=== PATIENT | female | born 1935 | race Caucasian/White ===

== ENCOUNTER 2017-11-05 13:26 | Emergency (ER) | payer OTHER ==
[2017-11-05 15:26] LABS: Urine Blood NEGATIVE (NEG); Urine Glucose NEGATIVE (NEG); Urine Protein NEGATIVE (NEG); Urine Specific Gravity 1.015 (1.005-1.030); Urine pH 6.5 (5.0-7.0)
--- NOTE | 2017-11-05 15:56 | RAD REPORT ---
EXAM DESCRIPTION: CT - Head Brain Wo Cont - 11/05/2017 3:44 pm CLINICAL HISTORY: Headache COMPARISON: None. TECHNIQUE: Computed axial tomography of the head was obtained. IV contrast was not requested. All CT scans are performed using dose optimization technique as appropriate and may include automated exposure control or mA/KV adjustment according to patient size. FINDINGS: An intracranial bleed is not seen . The ventricles are normal in caliber. No extra-axial fluid collection is noted. Cerebral atrophy is noted. Fluid within the sinuses/ mastoids is not seen. IMPRESSION: No acute intracranial abnormality is seen. If patient's symptoms persist MRI of the bra in would be recommended.
[2017-11-05 16:16] LABS: Urine Bacteria 20-50 /HPF (<20); Urine Culture Reflex Order NOT NEEDED; Urine RBC <5 /HPF (NONE SEEN)
--- NOTE | 2017-11-05 16:20 | RAD REPORT ---
EXAM DESCRIPTION: Gaby Rebolledo (2 Views)11/05/2017 3:54 pm CLINICAL HISTORY: Cough COMPARISON: 2012 FINDINGS: The lungs appear clear of acute infiltrate. The heart is mildly to moderate enlarged IMPRESSION: No acute abnormalities displayed
--- NOTE | 2017-11-05 16:20 | EDPHYS ---
Physician Documentation [facility] Name: Carrie Summers Age: 82 yrs Sex: Female : 1935 Arrival Date: 11/05/2017 Time: 13:28 Bed 26 Private MD: ED Physician Terrell Oneil HPI: 11/05 16:24 This 82 yrs old Female presents to ER via Ambulatory with complaints of Back snw Pain. 16:24 The patient presents with pain that is chronic, with no known mechanism of injury, and snw decreased range of motion. The symptoms are located in the low back. Onset: The symptoms/episode began/occurred gradually, today. The pain does not radiate. Associated signs and symptoms: Pertinent positives: headache. The problem was sustained Son went to the home and pt was tearful with headache and lower back pain. Severity of symptoms: At their worst the symptoms were moderate, severe, in the emergency department the symptoms have resolved. It is unknown whether or not the patient has had similar symptoms in the past. It is unknown whether or not the patient has recently seen a physician. pt has not been consistently taking regular home meds for about a week. Historical: - Allergies: 13:35 No Known Allergies; sv - Home Meds: 13:35 Eliquis oral oral [Active]; sv 13:40 amlodipine 10 mg oral tab once daily [Active]; hydrochlorothiazide 25 mg oral tab once sv daily [Active]; lisinopril 40 mg oral tab once daily [Active]; Namzaric 28-10 mg oral CSpX [Active]; Namenda oral oral [Active]; Lipitor 40 mg Oral tab 1 tab once daily [Active]; - PMHx: 13:35 PE; Hypertension; High Cholesterol; Depression; Alzheimers; sv - PSHx: 13:35 Hysterectomy; sv - Immunization history:: Adult Immunizations up to date. - Social history:: Smoking status: Patient/guardian denies using tobacco. - Ebola Screening: : No symptoms or risks identified at this time. ROS: 16:22 Constitutional: Negative for fever, chills, and weight loss, Eyes: Negative for injury, snw pain, redness, and discharge, ENT: Negative for injury, pain, and discharge, Neck: Negative for injury, pain, and swelling, Cardiovascular: Negative for chest pain, palpitations, and edema, Respiratory: Negative for shortness of breath, cough, wheezing, and pleuritic chest pain, Abdomen/GI: Negative for abdominal pain, nausea, vomiting, diarrhea, and constipation. 16:22 : Negative for injury, bleeding, discharge, and swelling, MS/Extremity: Negative for injury and deformity, Skin: Negative for injury, rash, and discoloration. 16:22 Back: Positive for pain at rest, pain with movement. 16:22 Neuro: Positive for headache. Exam: 16:22 Constitutional: This is a well developed, well nourished patient who is awake, alert, snw and in no acute distress. Head/Face: Normocephalic, atraumatic. Eyes: Pupils equal round and reactive to light, extra-ocular motions intact. Lids and lashes normal. Conjunctiva and sclera are non-icteric and not injected. Cornea within normal limits. Periorbital areas with no swelling, redness, or edema. ENT: Nares patent. No nasal discharge, no septal abnormalities noted. Tympanic membranes are normal and external auditory canals are clear. Oropharynx with no redness, swelling, or masses, exudates, or evidence of obstruction, uvula midline. Mucous membranes moist. Neck: Trachea midline, no thyromegaly or masses palpated, and no cervical lymphadenopathy. Supple, full range of motion without nuchal rigidity, or vertebral point tenderness. No Meningismus. Chest/axilla: Normal chest wall appearance and motion. Nontender with no deformity. No lesions are appreciated. Cardiovascular: Regular rate and rhythm with a normal S1 and S2. No gallops, murmurs, or rubs. Normal PMI, no JVD. No pulse deficits. Respiratory: Lungs have equal breath sounds bilaterally, clear to auscultation and percussion. No rales, rhonchi or wheezes noted. No increased work of breathing, no retractions or nasal flaring. Abdomen/GI: Soft, non-tender, with normal bowel sounds. No distension or tympany. No guarding or rebound. No evidence of tenderness throughout. Back: No spinal tenderness. No costovertebral tenderness. Full range of motion. Skin: Warm, dry with normal turgor. Normal color with no rashes, no lesions, and no evidence of cellulitis. MS/ Extremity: Pulses equal, no cyanosis. Neurovascular intact. Full, normal range of motion. Neuro: Awake and alert, GCS 15, oriented to person, place, time, and situation. Cranial nerves II-XII grossly intact. Motor strength 5/5 in all extremities. Sensory grossly intact. Cerebellar exam normal. Normal gait. Vital Signs: 13:36 BP 128 / 72; Pulse 67; Resp 18; Temp 98.5; Pulse Ox 100% ; Height 5 ft. 6 in. (167.64 sv cm); 15:53 BP 131 / 70; Pulse 64; Resp 18; Pulse Ox 100% on R/A; eb1 17:50 BP 130 / 63; Pulse 67; Resp 16; Pulse Ox 97% on R/A; eb1 MDM: 14:51 Patient medically screened. snw 16:24 Data reviewed: vital signs, nurses notes. Data interpreted: Pulse oximetry: on room air snw is 100 %. Interpretation: normal. Counseling: I had a detailed discussion with the patient and/or guardian regarding: the historical points, exam findings, and any diagnostic results supporting the discharge/admit diagnosis, the presence of at least one elevated blood pressure reading (>120/80) during this emergency department visit, lab results, radiology results, the need for outpatient follow up, to return to the emergency department if symptoms worsen or persist or if there are any questions or concerns that arise at home. Special discussion: Based on the history and exam findings, there is no indication for further emergent testing or inpatient evaluation. I discussed with the patient/guardian the need to see the primary care provider for further evaluation of the symptoms. 11/05 14:49 Order name: Urine Culture sn 11/05 14:49 Order name: Urine Microscopic Only; Complete Time: 16:17 snw 11/05 15:06 Order name: Urine Dipstick--Ancillary (enter results); Complete Time: 15:26 em1 11/05 15:28 Order name: Chest Pa And Lat (2 Views) XRAY; Complete Time: 16:22 snw 11/05 15:28 Order name: CT Head Brain wo Cont; Complete Time: 16:00 snw 11/05 14:49 Order name: Urine Dipstick-Ancillary (obtain specimen); Complete Time: 15:01 snw Administered Medications: 16:55 Not Given (unavailable at facility, other intervention used. ): cefPODOXime 100 mg PO ss once 16:57 CANCELLED (Other Intervention Used): Rocephin 1 grams IV at calculated rate once; Given ss slow IV push per pharmacy instructions 17:10 Drug: Rocephin (cefTRIAXone) 1 grams Route: IM; Site: left gluteus; eb1 17:50 Follow up: Response: No adverse reaction eb1 Disposition: 11/05/17 16:19 Discharged to Home. Impression: Urinary tract infection, site not specified, Headache - resolved, Low back pain. - Condition is Stable. - Discharge Instructions: Back Pain, Adult, Musculoskeletal Pain, Urinary Tract Infection. - Prescriptions for cefpodoxime 200 mg Oral Tablet - take 1 tablet by ORAL route every 12 hours with food; 20 tablet. - Medication Reconciliation Form, Thank You Letter, Antibiotic Education, Prescription Opioid Use form. - Follow up: Private Physician; When: 2 - 3 days; Reason: Recheck today's complaints, Continuance of care, Re-evaluation by your physician. Follow up: Emergency Department; When: As needed; Reason: Worsening of condition. Addendum: 11/09/2017 12:05 Co-signature as Attending Physician, Terrell Oneil MD. g s Signatures: Dispatcher [employer] Soumya Paulson RN RN sv Therrien, Shelly, CURB BUILDER-C CURB BUILDER-Prerna Farrell RN RN ss Starr, Gregory, MD MD gs Basinger, Emily RN RN eb1 Corrections: (The following items were deleted from the chart) 11/05 13:40 13:35 Home Meds: amlodipine oral; sv sv 13:40 13:36 Home Meds: Hydrochlorothiazide Oral; sv sv 13:40 13:36 Home Meds: Alzheimer's med; sv sv 13:40 13:36 Home Meds: Lisinopril Oral; sv sv 16:19 16:19 11/05/2017 16:19 Discharged to Home. Impression: Urinary tract infection, site snw not specified; Headache - resolved. Condition is Stable. Forms are Medication Reconciliation Form, Thank You Letter, Antibiotic Education, Prescription Opioid Use. Follow up: Private Physician; When: 2 - 3 days; Reason: Recheck today's complaints, Continuance of care, Re-evaluation by your physician. Follow up: Emergency Department; When: As needed; Reason: Worsening of condition. snw 16:57 16:56 Rocephin 1 grams IV at calculated rate once; Given slow IV push per pharmacy ss instructions ordered. 17:52 16:19 11/05/2017 16:19 Discharged to Home. Impression: Urinary tract infection, site eb1 not specified; Headache - resolved; Low back pain. Condition is Stable. Forms are Medication Reconciliation Form, Thank You Letter, Antibiotic Education, Prescription Opioid Use. Follow up: Private Physician; When: 2 - 3 days; Reason: Recheck today's complaints, Continuance of care, Re-evaluation by your physician. Follow up: Emergency Department; When: As needed; Reason: Worsening of condition. snw
--- NOTE | 2017-11-05 16:20 | ER ---
Nurse's Notes [facility] Name: Carrie Summers Age: 82 yrs Sex: Female : 1935 Arrival Date: 11/05/2017 Time: 13:28 Bed 26 Private MD: Diagnosis: Urinary tract infection, site not specified;Headache-resolved;Low back pain Presentation: 11/05 13:30 Presenting complaint: Patient states: neck pain that occurred this morning when she sv woke up. Son states pt has had low back pain and headache. Transition of care: patient was not received from another setting of care. Onset of symptoms was November 05, 2017. Care prior to arrival: None. 13:30 Method Of Arrival: Ambulatory sv 13:30 Acuity: MALINI 3 sv 17:52 Risk Assessment: Do you want to hurt yourself or someone else? Patient reports no eb1 desire to harm self or others. Initial Sepsis Screen: Does the patient meet any 2 criteria? No. Patient's initial sepsis screen is negative. Does the patient have a suspected source of infection? No. Patient's initial sepsis screen is negative. Triage Assessment: 13:30 General: Appears in no apparent distress. well developed, Behavior is cooperative. sv Pain: Complains of pain in neck Pain currently is 3 out of 10 on a pain scale. Neuro: Level of Consciousness is awake, alert, obeys commands, confused, Pt has Alzheimer's. Oriented to person, Moves all extremities. Full function Gait is steady. Respiratory: Respiratory effort is even, unlabored, Respiratory pattern is regular, symmetrical. Musculoskeletal: Range of motion: intact in all extremities. Historical: - Allergies: 13:35 No Known Allergies; sv - Home Meds: 13:35 Eliquis oral oral [Active]; sv 13:40 amlodipine 10 mg oral tab once daily [Active]; hydrochlorothiazide 25 mg oral tab once sv daily [Active]; lisinopril 40 mg oral tab once daily [Active]; Namzaric 28-10 mg oral CSpX [Active]; Namenda oral oral [Active]; Lipitor 40 mg Oral tab 1 tab once daily [Active]; - PMHx: 13:35 PE; Hypertension; High Cholesterol; Depression; Alzheimers; sv - PSHx: 13:35 Hysterectomy; sv - Immunization history:: Adult Immunizations up to date. - Social history:: Smoking status: Patient/guardian denies using tobacco. - Ebola Screening: : No symptoms or risks identified at this time. Screenin:51 Abuse screen: Denies threats or abuse. Nutritional screening: No deficits noted. eb1 Tuberculosis screening: No symptoms or risk factors identified. Fall Risk No fall in past 12 months (0 pts). Secondary diagnosis (15 points) No IV (0 pts). Ambulatory Aid- Crutches/Cane/Walker (15 pts). Gait- Weak (10 pts.). Mental Status- Overestimates/Forgets Limitations (15 pts.). Total Morin Fall Scale indicates High Risk Score (45 or more points). Fall prevention measures have been instituted. Placed Close to Nursing Station Frequent Obs/Assessments Occuring Family Present and informed to notify staff if the need to leave the bedside. Assessment: 15:53 General: Appears in no apparent distress. comfortable, well groomed, Behavior is calm, eb1 cooperative, flat. Pain: Denies pain. Neuro: Level of Consciousness is awake, alert, obeys commands, Oriented to person, place, Clinic Licensed Practical Nurse are equal bilaterally Moves all extremities. Cardiovascular: No deficits noted. Respiratory: No deficits noted. GI: No deficits noted. : No deficits noted. EENT: No deficits noted. Vital Signs: 13:36 BP 128 / 72; Pulse 67; Resp 18; Temp 98.5; Pulse Ox 100% ; Height 5 ft. 6 in. (167.64 sv cm); 15:53 BP 131 / 70; Pulse 64; Resp 18; Pulse Ox 100% on R/A; eb1 17:50 BP 130 / 63; Pulse 67; Resp 16; Pulse Ox 97% on R/A; eb1 ED Course: 13:28 Patient arrived in ED. sb2 13:33 Triage completed. sv 13:36 Arm band placed on left wrist. sv 14:46 [facility]C [facility]. snw 14:46 Terrell Oneil MD is Attending Physician. snw 14:48 Patient placed in an exam room, on a stretcher. sv 15:43 CT completed. Patient moved to CT via stretcher. Patient moved to radiology. cw1 15:44 CT Head Brain wo Cont In Process Unspecified. EDMS 15:53 Chest Pa And Lat (2 Views) XRAY In Process Unspecified. EDMS 17:50 No provider procedures requiring assistance completed. Patient did not have IV access eb1 during this emergency room visit. 17:52 Patient has correct armband on for positive identification. Bed in low position. Call eb1 light in reach. Side rails up X 1. Administered Medications: 16:55 Not Given (unavailable at facility, other intervention used. ): cefPODOXime 100 mg PO ss once 16:57 CANCELLED (Other Intervention Used): Rocephin 1 grams IV at calculated rate once; Given ss slow IV push per pharmacy instructions 17:10 Drug: Rocephin (cefTRIAXone) 1 grams Route: IM; Site: left gluteus; eb1 17:50 Follow up: Response: No adverse reaction eb1 Outcome: 16:19 Discharge ordered by . snw 17:50 Discharged to home ambulatory, with family. eb1 17:50 Condition: stable 17:50 Discharge instructions given to patient, family, Instructed on discharge instructions, follow up and referral plans. medication usage, Demonstrated understanding of instructions, follow-up care, medications, Prescriptions given X 1. 17:52 Patient left the ED. eb1 Signatures: Dispatcher [employer] EDMS Soumya Berrios RN RN Mel Pelaez, NELLY-C RENT AND HOUSING INVESTIGATOR-Emma Schumacher cw1 Paula Dumont2 Yarely Gallegos, RN RN eb1 Prerna Boo RN ss Corrections: (The following items were deleted from the chart) 13:40 13:35 Home Meds: amlodipine oral; sv sv 13:40 13:36 Home Meds: Hydrochlorothiazide Oral; sv sv 13:40 13:36 Home Meds: Alzheimer's med; sv sv 13:40 13:36 Home Meds: Lisinopril Oral; sv sv
[2017-11-05] MEDS ORDERED: CEFTRIAXONE 1000 MG/VIAL ONE (17:16)
[2017-11-05] MEDS ORDERED: WATER FOR INJ,STERILE 10 ML ONE (17:17)
== END 2017-11-05 17:52 | disposition home or self-care (01) ==
LOC: ER 13:26
DX: N39.0 Urinary tract infection, site not specified (principal); I10 Essential (primary) hypertension; E78.00 Pure hypercholesterolemia, unspecified; G30.9 Alzheimer's disease, unspecified; F02.80 Dementia in other diseases classified elsewhere, unspecified severity, without behavioral disturbance, psychotic disturbance, mood disturbance, and anxiety; F32.9 Major depressive disorder, single episode, unspecified; Z79.02 Long term (current) use of antithrombotics/antiplatelets
CPT/HCPCS: 70450; 71046; 81003; 81015; 87086; 87088; 96372; 99284